=== PATIENT | male | born 1955 | race Hispanic/Latino ===

== ENCOUNTER 2018-07-07 19:50 | Observation (INO) | payer OTHER ==
[2018-07-07 19:54] VITALS: BMI 34.7
[2018-07-07] MEDS ORDERED: Sodium Chloride 0.9% 1,000 ML IV STA (20:43)
[2018-07-07] MEDS ORDERED: ceFAZolin 1 GM in Sodium Chloride 0.9% 100 ML IVPB STA (20:43)
[2018-07-07] MEDS ORDERED: Morphine 4 MG/ML VIAL ONE ×2 (21:11→22:28)
--- NOTE | 2018-07-07 21:57 | ED PDOC ---
ED Additional Note - Date & Time of Evaluation Date of Evaluation: 07/07/18 Time of Evaluation: 20:50 - Physician Additional Note Physician Additional Note: Patient assessed and evaluated alongside NASRIN Villeda. Patient tripped over a wire on stage and fell on right elbow, sustaining a laceration which is likely an open fracture. Plan includes pain meds, tetanus booster, antibiotics, and ortho consult. Scribe Attestation: Documented by Erica Turcios, acting as a scribe for Maury Reyes MD. Provider Scribe Attestation: All medical record entries made by the Scribe were at my direction and personally dictated by me. I have reviewed the chart and agree that the record accurately reflects my personal performance of the history, physical exam, me dical decision making, and the department course for this patient. I have also personally directed, reviewed, and agree with the discharge instructions and disposition.
--- NOTE | 2018-07-07 21:59 | ED PDOC ---
HPI: General Adult Time Seen by Provider: 07/07/18 20:32 Chief Complaint (Nursing): Upper Extremity Problem/Injury History Per: Patient Additional Complaint(s): Pt. states earlier today at he was performing on a level ground stage then tripped over a monitor and fell off the stage landing directly on his R elbow. Pt. states he sustained a wound to the R elbow. Denies numbness, tingling, other injury, head injury, LOC. Past Medical History Reviewed: Historical Data, Nursing Documentation, Vital Signs Vital Signs: Last Vital Signs Temp 97.9 F 07/07/18 19:54 Pulse 78 07/07/18 19:54 Resp 18 07/07/18 19:54 BP 132/92 H 07/07/18 19:54 Pulse Ox 99 07/07/18 19:54 Primary Care Provider: Procedure,Nonphys - Medical History PMH: Hyperthyroidism - Surgical History Surgical History: No Surg Hx - Family History Family History: States: No Known Family Hx - Home Medications Home Medications: Ambulatory Orders Medication Instructions Recorded Esomeprazole Magnesium [Nexium] 40 mg PO DAILY 07/08/18 Levothyroxine [Synthroid] 0.05 mcg PO DAILY 07/08/18 - Allergies Allergies/Adverse Reactions: Allergies Allergy/AdvReac Type Severity Reaction Status Date / Time No Known Allergies Allergy Verified 07/07/18 19:54 Review of Systems ROS Statement: Except As Marked, All Systems Reviewed And Found Negative Physical Exam - Physical Exam Appears: Positive for: Well, Non-toxic, No Acute Distress Head Exam: Positive for: ATRAUMATIC, NORMAL INSPECTION, NORMOCEPHALIC Skin: Positive for: Normal Color, Warm. Negative for: Rash Eye Exam: Positive for: Normal appearance Neck: Positive for: Normal, Painless ROM, Supple Cardiovascular/Chest: Positive for: Regular Rate, Rhythm, Chest Non Tender Respiratory: Positive for: Normal Breath Sounds. Negative for: Respiratory Distress Pulses-Radial (L): 2+ Pulses-Radial (R): 2+ Gastrointestinal/Abdominal: Positive for: Soft. Negative for: Tenderness Back: Positive for: Normal Inspection. Negative for: L CVA Tenderness, R CVA Tenderness, Vertebral Tenderness Extremity: Positive for: Other (R elbow with moderate swelling superficial puncture wound on proximal posterior forearm; LROM of R elbow secondary to pain; no R wrist, R shoulder, R hand tenderness; able to actively move all fingers of R hand) Neurological/Psych: Positive for: Awake, Alert, Oriented (x3) - Laboratory Results Result Diagrams: 07/07/18 22:22 07/07/18 22:22 - ECG ECG: Positive for: Interpreted By Me ECG Rhythm: Positive for: Sinus Rhythm. Negative for: ST/T Changes Rate: 83 O2 Sat by Pulse Oximetry: 99 - Progress ED Course And Treament: Labs, R elbow x-ray, morphine 4mg IV, zofran 4mg IV, ancef 1gm IV, IV NS hydration ordered. Pt. kept NPO. Pt. evaluated by Dr. Reyes. [id number] Case d/w Dr. Josue who viewed x-rays and requests for pt. to get CT of R elbow and agrees with current care. As per Dr. Josue Pt. does not need to be NPO anymore. NPO order cancelled. CT R elbow: comminuted oblique intra-articular fracture of the olecranon process. Oblique intra-articular fracture of the dorsal radial head-neck. Dislocation of the radius relative to the distal humerus as described above. Case d/w Dr. Sy and arrangements made for admission. Procedures - Time-Out Type of Procedure: Splint placement Site of Procedure: R elbow Correct Patient (with visual ID + MR# on ID Band): Yes Correct Procedure: Yes Correct Site Marked: Yes X-Ray Marked: Yes - Splinting Location: R arm Hand-Made Type: orthoglass Splint: posterior elbow splint Pre-Proc Neuro Vasc Exam: normal Post-Proc Neuro Vasc Exam: normal Progress: Prior to placement of splint puncture wound was irrigated heavily with 1000 cc's of sterile water. DSD applied over wound. Shoulder sling applied. Disposition - Clinical Impression Clinical Impression: Open fracture of elbow - Patient ED Disposition Is Patient to be Admitted: Yes - Disposition Disposition Time: 21:30 Condition: FAIR
[2018-07-07 22:26] LABS: BASO # 0.1 K/uL (0.0-0.2); BASO % 0.5 % (0.0-2.0); EOS # 0.1 K/uL (0.0-0.7); EOS % 0.5 % (0.0-4.0); HEMOGLOBIN 14.9 g/dL (12.0-18.0); LYMPH % 13.7 % (20.0-40.0); MEAN CELL VOLUME 89.8 fl (80.0-94.0); MEAN CORPUSCULAR HEMOGLOBIN 31.4 pg (27.0-31.0); MEAN PLATELET VOLUME 7.8 fl (7.2-11.7); MONO % 6.7 % (0.0-10.0); NEUT # 11.3 K/uL (1.8-7.0); NEUT % 78.6 % (50.0-75.0); NRBC % 0.1 % (0.0-0.0); RBC 4.76 Mil/uL (4.40-5.90); RED CELL DISTRIBUTION WIDTH 13.8 % (11.5-14.5); WHITE BLOOD COUNT 14.4 K/uL (4.8-10.8)
[2018-07-07 22:29] LABS: INR 1.1; PROTHROMBIN TIME 12.5 Seconds (9.8-13.1)
[2018-07-07 22:31] LABS: PARTIAL THROMBOPLASTIN TIME 31.3 Seconds (25.6-37.1)
[2018-07-07 22:33] LABS: ALB/GLOB RATIO 1.4 (1.0-2.1); ALBUMIN 4.9 g/dL (3.5-5.0); BLOOD UREA NITROGEN 18 mg/dl (9-20); CALCIUM 9.4 mg/dL (8.4-10.2); GFR NON-AFRICAN AMERICAN > 60
[2018-07-07 22:40] LABS: ALT/SGPT 53 U/L (21-72); AST/SGOT 41 U/L (17-59)
--- NOTE | 2018-07-07 23:50 | CP.PCM.HP ---
<Letha Baltazar - Last Filed: 07/08/18 00:55> History of Present Illness - History of Present Illness History of Present Illness: CC: fracture HPI: 62 YO Male with PMHx of hiatal hernia, Hep c, hypothyroidism presents to the ED after tripping and falling on stage. Patient was on stage when he tripped on while falling, he tried to protect his head by sticking our his R hand and fell on the R hand instead. He heard crunching and pain after the impact. There was no head trauma, or LOC. Patient was able to get up with help after the fall, his partner called EMS and they presented to the ER. PMHx: hiatal hernia, hypothyroidism, Hep C SurGHx: denies FHx: hx of DM and CAD in mother and brother SHx: hx of smoking quit 10 yrs ago (25 pack years), social ETOH and denies illicit drug use NKDA Present on Admission - Present on Admission Any Indicators Present on Admission: No Review of Systems - Constitutional Constitutional: absent: Fever - Cardiovascular Cardiovascular: absent: Chest Pain, Dyspnea - Respiratory Respiratory: absent: Dyspnea - Gastrointestinal Gastrointestinal: absent: Abdominal Pain, Nausea, Vomiting - Neurological Neurological: absent: Headaches, Syncope, Weakness Past Patient History - Past Social History Smoking Status: Former Smoker Alcohol: Social Drugs: Denies - ENDOCRINE/METABOLIC Hx Hyperthyroidism: Yes - PSYCHIATRIC Hx Substance Use: No Meds Allergies/Adverse Reactions: Allergies Allergy/AdvReac Type Severity Reaction Status Date / Time No Known Allergies Allergy Verified 07/07/18 19:54 Physical Exam - Constitutional Appears: No Acute Distress - Head Exam Head Exam: NORMAL INSPECTION - Eye Exam Eye Exam: EOMI, Normal appearance - ENT Exam ENT Exam: Mucous Membranes Moist - Respiratory Exam Respiratory Exam: Clear to Auscultation Bilateral, NORMAL BREATHING PATTERN. absent: Wheezes - Cardiovascular Exam Cardiovascular Exam: REGULAR RHYTHM, +S1, +S2 - GI/Abdominal Exam GI & Abdominal Exam: Normal Bowel Sounds, Soft. absent: Tenderness - Extremities Exam Extremities exam: Negative for: pedal edema Additional comments: RUE in sling, wrapped in kitty bandage Moving shoulder, NT moving all fingers, sensation intact Cap refill <2 sec - Back Exam Back exam: NORMAL INSPECTION - Neurological Exam Neurological exam: Alert, Oriented x3 - Skin Skin Exam: Normal Color, Warm Additional comments: no other injury to any other locations, skin intact-no abrasions or open wound noted in other areas of skin Results - Vital Signs Recent Vital Signs: Last Vital Signs Temp 97.9 F 07/07/18 19:54 Pulse 78 07/07/18 19:54 Resp 18 07/07/18 19:54 BP 132/92 H 07/07/18 19:54 Pulse Ox 99 07/07/18 22:09 - Labs Result Diagrams: 07/07/18 22:22 07/07/18 22:22 Labs: Laboratory Results - last 24 hr 07/07/18 07/07/18 07/07/18 22:15 22:22 22:22 WBC 14.4 H RBC 4.76 Hgb 14.9 Hct 42.7 MCV 89.8 MCH 31.4 H MCHC 35.0 RDW 13.8 Plt Count 284 MPV 7.8 Neut % (Auto) 78.6 H Lymph % (Auto) 13.7 L Tillman % (Auto) 6.7 Eos % (Auto) 0.5 Baso % (Auto) 0.5 Neut # (Auto) 11.3 H Lymph # (Auto) 2.0 Tillman # (Auto) 1.0 H Eos # (Auto) 0.1 Baso # (Auto) 0.1 PT INR APTT Sodium 137 Potassium 4.3 Chloride 100 Carbon Dioxide 20 L Anion Gap 21 H BUN 18 Creatinine 1.0 Est GFR ( Amer) > 60 Est GFR (Non-Af Amer) > 60 Random Glucose 130 H Calcium 9.4 Total Bilirubin 0.6 AST 41 ALT 53 Alkaline Phosphatase 48 Total Protein 8.6 H Albumin 4.9 Globulin 3.6 Albumin/Globulin Ratio 1.4 Blood Type O NEGATIVE Antibody Screen Negative BBK History Checked No verified bt 07/07/18 22:22 WBC RBC Hgb Hct MCV MCH MCHC RDW Plt Count MPV Neut % (Auto) Lymph % (Auto) Tillman % (Auto) Eos % (Auto) Baso % (Auto) Neut # (Auto) Lymph # (Auto) Tillman # (Auto) Eos # (Auto) Baso # (Auto) PT 12.5 INR 1.1 APTT 31.3 Sodium Potassium Chloride Carbon Dioxide Anion Gap BUN Creatinine Est GFR ( Amer) Est GFR (Non-Af Amer) Random Glucose Calcium Total Bilirubin AST ALT Alkaline Phosphatase Total Protein Albumin Globulin Albumin/Globulin Ratio Blood Type Antibody Screen BBK History Checked Assessment & Plan - Assessment and Plan (Free Text) Assessment: Assessment/Plan: 62 YO Male with PMHx of hiatal hernia, Hep c, hypothyroidism is admitted for R elbow fracture. R elbow fracture -XR and CT reviewed displaced fx of the radial and ulner neck -Ortho consulted; follow up recs, NPO in AM -Pain management -IV fluids Leukopcytosis -likely 2/2 to trauma -acute phase reactant -follow up AM labs Hypothyroidism -chronic -c/w home meds Hep C -chronic -controlled, s/p tx DVT prolx -SCDs for now -hold Lovenox for now, questionable OR in AM <Nathen Sy - Last Filed: 07/08/18 06:16> Results - Vital Signs Recent Vital Signs: Last Vital Signs Temp 99.0 F 07/08/18 02:29 Pulse 87 07/08/18 02:29 Resp 20 07/08/18 02:29 BP 147/81 07/08/18 02:29 Pulse Ox 95 07/08/18 02:29 - Labs Result Diagrams: 07/07/18 22:22 07/07/18 22:22 Labs: Laboratory Results - last 24 hr 07/07/18 07/07/18 07/07/18 22:15 22:22 22:22 WBC 14.4 H RBC 4.76 Hgb 14.9 Hct 42.7 MCV 89.8 MCH 31.4 H MCHC 35.0 RDW 13.8 Plt Count 284 MPV 7.8 Neut % (Auto) 78.6 H Lymph % (Auto) 13.7 L Tillman % (Auto) 6.7 Eos % (Auto) 0.5 Baso % (Auto) 0.5 Neut # (Auto) 11.3 H Lymph # (Auto) 2.0 Tillman # (Auto) 1.0 H Eos # (Auto) 0.1 Baso # (Auto) 0.1 PT INR APTT Sodium 137 Potassium 4.3 Chloride 100 Carbon Dioxide 20 L Anion Gap 21 H BUN 18 Creatinine 1.0 Est GFR ( Amer) > 60 Est GFR (Non-Af Amer) > 60 Random Glucose 130 H Calcium 9.4 Total Bilirubin 0.6 AST 41 ALT 53 Alkaline Phosphatase 48 Total Protein 8.6 H Albumin 4.9 Globulin 3.6 Albumin/Globulin Ratio 1.4 Blood Type O NEGATIVE Blood Type Confirm Antibody Screen Negative BBK History Checked No verified bt 07/07/18 07/07/18 22:22 23:32 WBC RBC Hgb Hct MCV MCH MCHC RDW Plt Count MPV Neut % (Auto) Lymph % (Auto) Tillman % (Auto) Eos % (Auto) Baso % (Auto) Neut # (Auto) Lymph # (Auto) Tillman # (Auto) Eos # (Auto) Baso # (Auto) PT 12.5 INR 1.1 APTT 31.3 Sodium Potassium Chloride Carbon Dioxide Anion Gap BUN Creatinine Est GFR ( Amer) Est GFR (Non-Af Amer) Random Glucose Calcium Total Bilirubin AST ALT Alkaline Phosphatase Total Protein Albumin Globulin Albumin/Globulin Ratio Blood Type Blood Type Confirm O NEGATIVE Antibody Screen BBK History Checked Attending/Attestation - Attestation I have personally seen and examined this patient.: Yes I have fully participated in the care of the patient.: Yes I have reviewed all pertinent clinical information: Yes Notes (Text): 07/08/18 06:08 I saw, examined and discussed this patient with Dr Baltazar. I agree with the assessment and plan outlined above. This is a 62 years old male with hx of treated Hepatitis C, hypothyroidism who fell while singing receiving trauma to the right elbow with open fracture and dislocation of the Radius and Ulna. Consult Orthopedic Dr Josue and treat with pain management , Tetanus Toxoid in ED, Empirical Antibiotic Cefazolin and pain management . Treat Hypothyroidism and follow TSH Nathen Sy MD
[2018-07-08] MEDS ORDERED: Potassium Ch 20mEq in D5-1/2NS 1,000 ML IV SCH (06:00)
[2018-07-08] MEDS: Pantoprazole 40 mg EC Tab PO SCH (06:04)
[2018-07-08] MEDS: Levothyroxine 50 MCG TAB PO SCH (06:04)
[2018-07-08] MEDS ORDERED: Levothyroxine 50 MCG TAB PO SCH (06:30)
[2018-07-08 06:54] LABS: BASO # 0.1 K/uL (0.0-0.2); BASO % 0.5 % (0.0-2.0); EOS % 0.2 % (0.0-4.0); HEMOGLOBIN 14.3 g/dL (12.0-18.0); LYMPH % 18.6 % (20.0-40.0); MEAN CELL VOLUME 88.3 fl (80.0-94.0); MEAN CORPUSCULAR HEMOGLOBIN 31.2 pg (27.0-31.0); MEAN CORPUSCULAR HGB CONC 35.4 g/dL (33.0-37.0); MEAN PLATELET VOLUME 7.8 fl (7.2-11.7); MONO % 9.5 % (0.0-10.0); NEUT # 7.5 K/uL (1.8-7.0); NEUT % 71.2 % (50.0-75.0); NRBC % 0.1 % (0.0-0.0); RBC 4.57 Mil/uL (4.40-5.90); RED CELL DISTRIBUTION WIDTH 13.7 % (11.5-14.5); WHITE BLOOD COUNT 10.5 K/uL (4.8-10.8)
[2018-07-08 07:00] LABS: BLOOD UREA NITROGEN 17 mg/dl (9-20); CALCIUM 8.9 mg/dL (8.4-10.2); GFR NON-AFRICAN AMERICAN > 60
[2018-07-08] MEDS: ceFAZolin 1 GM in Sodium Chloride 0.9% 100 ML IVPB SCH ×2 (08:24→16:43)
--- NOTE | 2018-07-08 09:06 | CT ---
Date of service: 07/07/2018 PROCEDURE: CT right elbow HISTORY: trauma; attention R elbow COMPARISON: Not available TECHNIQUE: 2.5 mm contiguous axial sections were acquired through the right elbow. Sagittal and coronal images were reformatted from the axial images. Contrast administered: None Total exam DLP: 171.22 mGy-cm. This CT exam was performed using 1 or more of the following dose reduction techniques: Automated exposure control, adjustment of the mA and/or kV according to patient size, and/or use of iterative reconstruction technique. FINDINGS: There is dislocation of the radial head at the elbow. There is no evidence of radial head fracture on this examination. There is severely comminuted and displaced fracture of the proximal ulna. The ulna does not articulate normally with the trochlea. It is displaced without being frankly dislocated. There is no humeral fracture identified. There is no significant hemarthrosis appreciated. There is no lytic or blastic osseous lesion. IMPRESSION: Severely comminuted intra-articular proximal ulnar fracture with displacement/subluxation without evidence of gaby dislocation at the trochlea. There is gaby dislocation of the radial head without evidence of fracture. There is no humeral fracture appreciated. The preliminary findings for this examination were reported by [facility] at 11:27 p.m. on 07/07/2018. There is concurrence of this report with the preliminary findings.
[2018-07-08] MEDS ORDERED: Oxycodone/Acetaminophen 5/325 mg Tab PO PRN (09:27)
--- NOTE | 2018-07-08 09:32 | CP.PCM.CON ---
History of Present Illness - History of Present Illness History of Present Illness: Orthopedic consultation Dr. 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 Denies head injury, denies pain in other extremities, denies numbness/tingling. Denies CP/SOB/dizziness PMH: former smoker, Hep C, hyperthyroid, Review of Systems - Review of Systems All systems: reviewed and no additional remarkable complaints except - Constitutional Additional comments: no fever/chills - Cardiovascular Cardiovascular: As Per HPI - Respiratory Respiratory: As Per HPI - Integumentary Additional comments: wound to elbow - Neurological Neurological: As Per HPI - Hematologic/Lymphatic Hematologic: absent: As Per HPI, Easy Bleeding, Easy Bruising, Lymphadenopathy, Other Past Patient History - Past Medical History & Family History Past Medical History?: Yes Past Family History: Reviewed and not pertinent - Past Social History Smoking Status: Former Smoker - CARDIAC Hx Cardiac Disorders: No Hx Hypercholesterolemia: No (denies hx) Hx Hypertension: No (denies hx) - PULMONARY Hx Respiratory Disorders: No - NEUROLOGICAL Hx Neurological Disorder: No - HEENT Hx HEENT Problems: Yes Other/Comment: wears eyeglasses, hx of tinnitis to both ears - RENAL Hx Chronic Kidney Disease: No - ENDOCRINE/METABOLIC Hx Endocrine Disorders: Yes Hx Hyperthyroidism: Yes - HEMATOLOGICAL/ONCOLOGICAL Hx Blood Disorders: Yes Hx AIDS: No Hx Hepatitis C: Yes Hx Human Immunodeficiency Virus (HIV): No - INTEGUMENTARY Hx Dermatological Problems: No - MUSCULOSKELETAL/RHEUMATOLOGICAL Hx Falls: No - GASTROINTESTINAL Hx Gastrointestinal Disorders: Yes Other/Comment: hiatal hernia - GENITOURINARY/GYNECOLOGICAL Hx Genitourinary Disorders: No Hx Prostate Problems: No - PSYCHIATRIC Hx Substance Use: No - SURGICAL HISTORY Hx Surgeries: No Other/Comment: hx of endoscopy and colonoscopy. denies any surgical hx - ANESTHESIA Hx Anesthesia: Yes Hx Anesthesia Reactions: No Meds Allergies/Adverse Reactions: Allergies Allergy/AdvReac Type Severity Reaction Status Date / Time No Known Allergies Allergy Verified 07/07/18 19:54 - Medications Medications: Current Medications Acetaminophen (Tylenol 325mg Tab) 650 mg PO Q6 PRN PRN Reason: Pain, Mild (1-3) Potassium Chloride/Dextrose/Sod Cl (Potassium Chl 20 Meq In D5-1/2ns) 1,000 mls @ 150 mls/hr IV .Q6H40M [facility] Stop: 07/08/18 12:39 Last Admin: 07/08/18 06:04 Dose: 150 mls/hr Cefazolin Sodium 1 gm/ Sodium (Chloride) 100 mls @ 100 mls/hr IVPB Q8 GRACE; Protocol Last Admin: 07/08/18 08:24 Dose: 100 mls/hr Levothyroxine Sodium (Synthroid) 50 mcg PO DAILY@0630 [facility] Last Admin: 07/08/18 06:04 Dose: 50 mcg Morphine Sulfate (Morphine) 6 mg IVP Q6 PRN PRN Reason: Pain, severe (8-10) Morphine Sulfate (Morphine) 2 mg IVP Q4 PRN PRN Reason: Pain, moderate (4-7) Last Admin: 07/08/18 06:20 Dose: 2 mg Oxycodone/Acetaminophen (Percocet 5/325 Mg Tab) 1 tab PO Q4 PRN PRN Reason: Pain, Mild (1-3) Stop: 07/11/18 09:28 Pantoprazole Sodium (Protonix Ec Tab) 40 mg PO DAILY [facility] Last Admin: 07/08/18 06:04 Dose: 40 mg Physical Exam - Constitutional Appears: Well, No Acute Distress - Head Exam Head Exam: ATRAUMATIC - Neck Exam Neck exam: Positive for: Full Rom, Normal Inspection - Respiratory Exam Respiratory Exam: NORMAL BREATHING PATTERN - Cardiovascular Exam Additional comments: +radial pulse - Expanded Upper Extremities Exam Right General: laceration Neurosensory exam: median nerve intact, radial nerve intact, ulnar nerve intact Vascular exam: radial pulse (long arm splint intact) - Neurological Exam Neurological exam: Alert, Oriented x3 - Psychiatric Exam Psychiatric exam: Normal Affect, Normal Mood - Skin Skin Exam: Dry, Normal Color, Warm Additional comments: small puncture to posterior forearm Results - Vital Signs Recent Vital Signs: Last Vital Signs Temp 98.0 F 07/08/18 07:50 Pulse 71 07/08/18 07:50 Resp 19 07/08/18 07:50 BP 145/80 07/08/18 07:50 Pulse Ox 96 07/08/18 07:50 - Labs Result Diagrams: 07/08/18 05:35 07/08/18 05:35 Labs: Laboratory Results - last 24 hr 07/07/18 07/07/18 07/07/18 22:15 22:22 22:22 WBC 14.4 H RBC 4.76 Hgb 14.9 Hct 42.7 MCV 89.8 MCH 31.4 H MCHC 35.0 RDW 13.8 Plt Count 284 MPV 7.8 Neut % (Auto) 78.6 H Lymph % (Auto) 13.7 L Edmunds % (Auto) 6.7 Eos % (Auto) 0.5 Baso % (Auto) 0.5 Neut # (Auto) 11.3 H Lymph # (Auto) 2.0 Edmunds # (Auto) 1.0 H Eos # (Auto) 0.1 Baso # (Auto) 0.1 PT INR APTT Sodium 137 Potassium 4.3 Chloride 100 Carbon Dioxide 20 L Anion Gap 21 H BUN 18 Creatinine 1.0 Est GFR ( Amer) > 60 Est GFR (Non-Af Amer) > 60 Random Glucose 130 H Calcium 9.4 Total Bilirubin 0.6 AST 41 ALT 53 Alkaline Phosphatase 48 Total Protein 8.6 H Albumin 4.9 Globulin 3.6 Albumin/Globulin Ratio 1.4 TSH 3rd Generation Blood Type O NEGATIVE Blood Type Confirm Antibody Screen Negative BBK History Checked No verified bt 07/07/18 07/07/18 07/08/18 22:22 23:32 05:35 WBC 10.5 RBC 4.57 Hgb 14.3 Hct 40.4 MCV 88.3 MCH 31.2 H MCHC 35.4 RDW 13.7 Plt Count 268 MPV 7.8 Neut % (Auto) 71.2 Lymph % (Auto) 18.6 L Edmunds % (Auto) 9.5 Eos % (Auto) 0.2 Baso % (Auto) 0.5 Neut # (Auto) 7.5 H Lymph # (Auto) 2.0 Edmunds # (Auto) 1.0 H Eos # (Auto) 0.0 Baso # (Auto) 0.1 PT 12.5 INR 1.1 APTT 31.3 Sodium Potassium Chloride Carbon Dioxide Anion Gap BUN Creatinine Est GFR ( Amer) Est GFR (Non-Af Amer) Random Glucose Calcium Total Bilirubin AST ALT Alkaline Phosphatase Total Protein Albumin Globulin Albumin/Globulin Ratio TSH 3rd Generation Blood Type Blood Type Confirm O NEGATIVE Antibody Screen BBK History Checked 07/08/18 05:35 WBC RBC Hgb Hct MCV MCH MCHC RDW Plt Count MPV Neut % (Auto) Lymph % (Auto) Edmunds % (Auto) Eos % (Auto) Baso % (Auto) Neut # (Auto) Lymph # (Auto) Edmunds # (Auto) Eos # (Auto) Baso # (Auto) PT INR APTT Sodium 135 Potassium 4.6 Chloride 103 Carbon Dioxide 19 L Anion Gap 18 BUN 17 Creatinine 1.0 Est GFR ( Amer) > 60 Est GFR (Non-Af Amer) > 60 Random Glucose 129 H Calcium 8.9 Total Bilirubin AST ALT Alkaline Phosphatase Total Protein Albumin Globulin Albumin/Globulin Ratio TSH 3rd Generation 4.01 Blood Type Blood Type Confirm Antibody Screen BBK History Checked - Impressions Impression: atient Name / ID : BRIAN HSU / [id number] Exam Date : 07/07/2018 22:34:51 ( Approved ) Study Comment : Sex / Age : M / 62Y Creator : Jack Cordova MD Dictator : Jack Cordova MD Telephone Order Dispatcher : Sharples Machine Operator : Jack Cordova MD Approver2 : Report Date : 07/08/2018 09:03:08 My Comment : Date of service: 07/07/2018 PROCEDURE: CT right elbow HISTORY: trauma; attention R elbow COMPARISON: Not available TECHNIQUE: 2.5 mm contiguous axial sections were acquired through the right elbow. Sagittal and coronal images were reformatted from the axial images. Contrast administered: None Total exam DLP: 171.22 mGy-cm. This CT exam was performed using 1 or more of the following dose reduction techniques: Automated exposure control, adjustment of the mA and/or kV according to patient size, and/or use of iterative reconstruction technique. FINDINGS: There is dislocation of the radial head at the elbow. There is no evidence of radial head fracture on this examination. There is severely comminuted and displaced fracture of the proximal ulna. The ulna does not articulate normally with the trochlea. It is displaced without being frankly dislocated. There is no humeral fracture identified. There is no significant hemarthrosis appreciated. There is no lytic or blastic osseous lesion. IMPRESSION: Severely comminuted intra-articular proximal ulnar fracture with di splacement/subluxation without evidence of gaby dislocation at the trochlea. There is gaby dislocation of the radial head without evidence of fracture. There is no humeral fracture appreciated. The preliminary findings for this examination were reported by [facility] at 11:27 p.m. on 07/07/2018. There is concurrence of this report with the preliminary findings. Assessment & Plan (1) Fracture, Monteggia's, right arm, open Assessment and Plan: copiously irrigated in ER cont splint will need ORIF, possible radial head replacement 07/09 pending medical optimization pain medication NPO p MN check vit D for OR Status: Acute
--- NOTE | 2018-07-08 10:56 | RAD ---
Date of service: 07/07/2018 HISTORY: Trauma/fall COMPARISON: In her old of there is no mammogram correct FINDINGS: LUNGS: No active pulmonary disease. PLEURA: No significant pleural effusion identified, no pneumothorax apparent. CARDIOVASCULAR: No atherosclerotic calcification present Normal. OSSEOUS STRUCTURES: No significant abnormalities. VISUALIZED UPPER ABDOMEN: Normal. OTHER FINDINGS: None. IMPRESSION: No active disease.
--- NOTE | 2018-07-08 11:53 | CARD ---
APPROVED REPORT Date of service: 07/08/2018 EKG Measurement Heart [id number] <Conclusion> Normal sinus rhythm Normal Electrocardiogram
--- NOTE | 2018-07-08 13:07 | CP.PCM.PN ---
<Malissa Pierre - Last Filed: 07/08/18 13:09> Subjective - Date & Time of Evaluation Date of Evaluation: 07/08/18 Time of Evaluation: 11:30 - Subjective Subjective: Patient seen and examined at bedside. Reports moderate pain from area of broken bone. Denies angina, dypsnea, abdominal pain, nausea, vomiting, and urinary sym ptoms. Objective - Vital Signs/Intake and Output Vital Signs (last 24 hours): Temp Pulse Resp BP Pulse Ox 98.0 F 71 19 145/80 96 07/08/18 07:50 07/08/18 07:50 07/08/18 07:50 07/08/18 07:50 07/08/18 07:50 - Medications Medications: Current Medications Acetaminophen (Tylenol 325mg Tab) 650 mg PO Q6 PRN PRN Reason: Pain, Mild (1-3) Cefazolin Sodium 1 gm/ Sodium (Chloride) 100 mls @ 100 mls/hr IVPB Q8 [facility]; Protocol Last Admin: 07/08/18 08:24 Dose: 100 mls/hr Levothyroxine Sodium (Synthroid) 50 mcg PO DAILY@0630 [facility] Last Admin: 07/08/18 06:04 Dose: 50 mcg Morphine Sulfate (Morphine) 6 mg IVP Q6 PRN PRN Reason: Pain, severe (8-10) Last Admin: 07/08/18 10:59 Dose: 6 mg Morphine Sulfate (Morphine) 2 mg IVP Q4 PRN PRN Reason: Pain, moderate (4-7) Last Admin: 07/08/18 06:20 Dose: 2 mg Oxycodone/Acetaminophen (Percocet 5/325 Mg Tab) 1 tab PO Q4 PRN PRN Reason: Pain, Mild (1-3) Stop: 07/11/18 09:28 Pantoprazole Sodium (Protonix Ec Tab) 40 mg PO DAILY [facility] Last Admin: 07/08/18 06:04 Dose: 40 mg - Labs Labs: 07/08/18 05:35 07/08/18 05:35 PT 12.5 Seconds (9.8-13.1) 07/07/18 22:22 INR 1.1 07/07/18 22:22 APTT 31.3 Seconds (25.6-37.1) 07/07/18 22:22 - Constitutional Appears: Non-toxic, No Acute Distress - Eye Exam Eye Exam: Normal appearance - ENT Exam ENT Exam: Mucous Membranes Moist - Respiratory Exam Respiratory Exam: Clear to Ausculation Bilateral, NORMAL BREATHING PATTERN. absent: Accessory Muscle Use, Chest Wall Tenderness, Decreased Breath Sounds, Prolonged Expiratory Phase, Rales, Rhonchi, Wheezes, Respiratory Distress, Stridor - Cardiovascular Exam Cardiovascular Exam: REGULAR RHYTHM, +S1, +S2 - GI/Abdominal Exam GI & Abdominal Exam: Soft, Normal Bowel Sounds. absent: Distended, Firm, Guarding, Rigid, Tenderness, Rebound - Extremities Exam Extremities Exam: Normal Capillary Refill. absent: Calf Tenderness, Pedal Edema, Tenderness Additional comments: Soft cast placed on right arm. Able to move fingers and good, equal sensation bilaterally. - Neurological Exam Neurological Exam: Alert, Awake, Oriented x3 - Psychiatric Exam Psychiatric exam: Normal Affect, Normal Mood - Skin Skin Exam: Dry, Intact, Normal Color, Warm Assessment and Plan - Assessment and Plan (Free Text) Assessment: 62 YO Male with PMHx of hiatal hernia, Hep c, hypothyroidism is admitted for R elbow fracture. For OR tomorrow morning. Plan: R elbow fracture -XR and CT reviewed displaced fx of the radial and ulner neck -Ortho consulted- OR tomorrow morning. - NPO at Midnight -Pain management -IV fluids Leukocytosis -likely 2/2 to trauma -acute phase reactant -trending down from 14.4 to 10.5 Hypothyroidism -chronic -c/w home meds Hep C -chronic -controlled, s/p tx DVT prolx -SCDs for now -hold Lovenox for now, OR in AM <Jose Kim D - Last Filed: 07/08/18 13:53> Objective - Vital Signs/Intake and Output Vital Signs (last 24 hours): Temp Pulse Resp BP Pulse Ox 98.0 F 71 19 145/80 96 07/08/18 07:50 07/08/18 07:50 07/08/18 07:50 07/08/18 07:50 07/08/18 07:50 - Medications Medications: Current Medications Acetaminophen (Tylenol 325mg Tab) 650 mg PO Q6 PRN PRN Reason: Pain, Mild (1-3) Cefazolin Sodium 1 gm/ Sodium (Chloride) 100 mls @ 100 mls/hr IVPB Q8 [facility]; Protocol Last Admin: 07/08/18 08:24 Dose: 100 mls/hr Levothyroxine Sodium (Synthroid) 50 mcg PO DAILY@0630 [facility] Last Admin: 07/08/18 06:04 Dose: 50 mcg Morphine Sulfate (Morphine) 6 mg IVP Q6 PRN PRN Reason: Pain, severe (8-10) Last Admin: 07/08/18 10:59 Dose: 6 mg Morphine Sulfate (Morphine) 2 mg IVP Q4 PRN PRN Reason: Pain, moderate (4-7) Last Admin: 07/08/18 06:20 Dose: 2 mg Oxycodone/Acetaminophen (Percocet 5/325 Mg Tab) 1 tab PO Q4 PRN PRN Reason: Pain, Mild (1-3) Stop: 07/11/18 09:28 Pantoprazole Sodium (Protonix Ec Tab) 40 mg PO DAILY [facility] Last Admin: 07/08/18 06:04 Dose: 40 mg - Labs Labs: 07/08/18 05:35 07/08/18 05:35 PT 12.5 Seconds (9.8-13.1) 07/07/18 22:22 INR 1.1 07/07/18 22:22 APTT 31.3 Seconds (25.6-37.1) 07/07/18 22:22 Attending/Attestation - Attestation I have personally seen and examined this patient.: Yes I have fully participated in the care of the patient.: Yes I have reviewed all pertinent clinical information, including history, physical exam and plan: Yes Notes (Text): 07/08/18 13:52 Patient seen and examined with resident. Case discussed and agreed with assessment and plan.
[2018-07-09] MEDS: ceFAZolin 1 GM in Sodium Chloride 0.9% 100 ML IVPB SCH ×2 (00:08→09:19)
[2018-07-09] MEDS: Dextrose 5%/0.45% NS 1,000 ML IV SCH ×2 (00:08→09:32)
[2018-07-09] MEDS: Levothyroxine 50 MCG TAB PO SCH (06:21)
[2018-07-09] MEDS: Pantoprazole 40 mg EC Tab PO SCH (09:30)
--- NOTE | 2018-07-09 10:35 | CP.PCM.PN ---
<Malissa Pierre - Last Filed: 07/09/18 10:32> Subjective - Date & Time of Evaluation Date of Evaluation: 07/09/18 Time of Evaluation: 09:15 - Subjective Subjective: Patient seen and examined at bedside. Reports moderate amount of pain from right elbow. Denies chest pain, dypsnea, nausea, vomiting, abdominal pain or lower e xtremity pain. NPO, OR today at 4:[address] Josue. Objective - Vital Signs/Intake and Output Vital Signs (last 24 hours): Temp Pulse Resp BP Pulse Ox 98.3 F 84 20 134/84 95 07/09/18 08:05 07/09/18 08:05 07/09/18 08:05 07/09/18 08:05 07/09/18 08:05 - Medications Medications: Current Medications Acetaminophen (Tylenol 325mg Tab) 650 mg PO Q6 PRN PRN Reason: Pain, Mild (1-3) Hydromorphone HCl (Dilaudid) 1 mg IVP Q4 PRN PRN Reason: Pain, severe (8-10) Cefazolin Sodium 1 gm/ Sodium (Chloride) 100 mls @ 100 mls/hr IVPB Q8 [facility]; Protocol Last Admin: 07/09/18 09:19 Dose: 100 mls/hr Dextrose/Sodium Chloride (Dextrose 5%/0.45% Ns 1000 Ml) 1,000 mls @ 120 mls/hr IV .Q8H20M [facility] Stop: 07/09/18 16:03 Last Admin: 07/09/18 09:32 Dose: 120 mls/hr Levothyroxine Sodium (Synthroid) 50 mcg PO DAILY@0630 [facility] Last Admin: 07/09/18 06:21 Dose: Not Given Morphine Sulfate (Morphine) 2 mg IVP Q4 PRN PRN Reason: Pain, moderate (4-7) Last Admin: 07/09/18 09:29 Dose: 2 mg Oxycodone/Acetaminophen (Percocet 5/325 Mg Tab) 1 tab PO Q4 PRN PRN Reason: Pain, Mild (1-3) Stop: 07/11/18 09:28 Last Admin: 07/08/18 17:36 Dose: 1 tab Pantoprazole Sodium (Protonix Ec Tab) 40 mg PO DAILY [facility] Last Admin: 07/09/18 09:30 Dose: Not Given - Labs Labs: 07/08/18 05:35 07/08/18 05:35 PT 12.5 Seconds (9.8-13.1) 07/07/18 22:22 INR 1.1 07/07/18 22:22 APTT 31.3 Seconds (25.6-37.1) 07/07/18 22:22 - Constitutional Appears: Non-toxic, No Acute Distress - Eye Exam Eye Exam: Normal appearance - ENT Exam ENT Exam: Mucous Membranes Moist - Respiratory Exam Respiratory Exam: Clear to Ausculation Bilateral, NORMAL BREATHING PATTERN. absent: Accessory Muscle Use, Chest Wall Tenderness, Decreased Breath Sounds, Prolonged Expiratory Phase, Rales, Rhonchi, Wheezes, Respiratory Distress, Stridor - Cardiovascular Exam Cardiovascular Exam: REGULAR RHYTHM, +S1, +S2 - GI/Abdominal Exam GI & Abdominal Exam: Soft, Normal Bowel Sounds. absent: Distended, Firm, Guarding, Rigid, Tenderness, Mass, Rebound - Extremities Exam Extremities Exam: Full ROM, Normal Capillary Refill. absent: Calf Tenderness, Pedal Edema, Tenderness Additional comments: Soft cast in place on right elbow down to the right hand. Able to move fingers and has good sensation. - Neurological Exam Neurological Exam: Alert, Awake, Oriented x3 - Psychiatric Exam Psychiatric exam: Normal Affect, Normal Mood - Skin Skin Exam: Dry, Intact, Normal Color, Warm Assessment and Plan - Assessment and Plan (Free Text) Assessment: 62 yo Male with PMHx of hiatal hernia, Hep c, hypothyroidism is admitted for R elbow fracture. For OR today at 4:30 pm. Plan: R elbow fracture -XR and CT reviewed displaced fx of the radial and ulnar neck -Ortho consulted- OR today @ 4:30pm. - NPO -Pain management - added dilaudid at this time given severe pain. -IV fluids Leukocytosis -likely 2/2 to trauma -acute phase reactant -trending down from 14.4 to 10.5 Hypothyroidism -chronic -c/w home meds Hep C -chronic -controlled, s/p tx DVT prolx -SCDs for now -hold Lovenox for now, OR today, restart tomorrow. <Mariah Hudson - Last Filed: 07/09/18 19:29> Objective - Vital Signs/Intake and Output Vital Signs (last 24 hours): Temp Pulse Resp BP Pulse Ox 97.5 F L 95 H 17 154/97 H 95 07/09/18 18:25 07/09/18 18:25 07/09/18 18:25 07/09/18 18:25 07/09/18 18:25 Intake and Output: 07/09/18 07/10/18 18:59 06:59 Intake Total 2250 Balance 2250 - Medications Medications: Current Medications Acetaminophen (Tylenol 325mg Tab) 650 mg PO Q6 PRN PRN Reason: Pain, Mild (1-3) Docusate Sodium (Colace) 100 mg PO BID [facility] Hydromorphone HCl (Dilaudid) 1 mg IVP Q4 PRN PRN Reason: Pain, severe (8-10) Last Admin: 07/09/18 11:01 Dose: 1 mg Hydromorphone HCl (Dilaudid) 0.5 mg IVP Q10M PRN PRN Reason: Pain, moderate (4-7) Stop: 07/09/18 20:06 Last Admin: 07/09/18 18:34 Dose: 0.5 mg Cefazolin Sodium 2 gm/ Sodium (Chloride) 100 mls @ 100 mls/hr IVPB Q8 [facility]; Protocol Stop: 07/10/18 09:59 Lactated Ringer's (Lactated Ringer's) 1,000 mls @ 100 mls/hr IV .Q10H [facility] Levothyroxine Sodium (Synthroid) 50 mcg PO DAILY@0630 [facility] Last Admin: 07/09/18 06:21 Dose: Not Given Ondansetron HCl (Zofran Inj) 4 mg IVP ONCE PRN PRN Reason: Nausea/Vomiting Stop: 07/09/18 20:06 Oxycodone/Acetaminophen (Percocet 5/325 Mg Tab) 1 tab PO Q4 PRN PRN Reason: Pain, Mild (1-3) Stop: 07/11/18 09:28 Last Admin: 07/08/18 17:36 Dose: 1 tab Oxycodone/Acetaminophen (Percocet 5/325 Mg Tab) 2 tab PO Q4 PRN PRN Reason: Pain, moderate (4-7) Stop: 07/12/18 17:22 Pantoprazole Sodium (Protonix Ec Tab) 40 mg PO DAILY [facility] Last Admin: 07/09/18 09:30 Dose: Not Given - Labs Labs: 07/08/18 05:35 07/08/18 05:35 PT 12.5 Seconds (9.8-13.1) 07/07/18 22:22 INR 1.1 07/07/18 22:22 APTT 31.3 Seconds (25.6-37.1) 07/07/18 22:22 Attending/Attestation - Attestation I have personally seen and examined this patient.: Yes I have fully participated in the care of the patient.: Yes I have reviewed all pertinent clinical information, including history, physical exam and plan: Yes Notes (Text): Right Elbow Fracture Hypothyroidism - Plan for ORIF today by Dr Josue - NPO -IVF - Pain mgt - cont Levothyroxine - PT/OT consult
[2018-07-09] MEDS ORDERED: Propofol 10 mg/ml Inj (20 ML) ONE ×4 (12:27→18:11)
[2018-07-09] MEDS ORDERED: Succinylcholine 200 mg/10 ml Inj IV ONE (12:27)
[2018-07-09] MEDS ORDERED: Rocuronium 10 mg/ml (5 ml) ONE ×2 (12:27→14:23)
[2018-07-09] MEDS ORDERED: Neostigmine 1:1000 (1 mg/ml) Inj ONE ×2 (12:27→16:33)
[2018-07-09] MEDS ORDERED: Lidocaine 4% (Laryng-O-Jet) Kit MM ONE (12:27)
[2018-07-09] MEDS ORDERED: Midazolam 2 MG/2 ML VIAL ONE (12:27)
[2018-07-09] MEDS ORDERED: Lidocaine 1% 5ml Abboject ONE (12:33)
[2018-07-09] MEDS ORDERED: Bupivacaine 0.25%-Epinephrine 1:200,000 (30 ml) Inj ONE (12:34)
--- NOTE | 2018-07-09 12:40 | RAD ---
Date of service: 07/07/2018 PROCEDURE: Radiographs of the right elbow. HISTORY: trauma COMPARISON: July 07, 2018. CT upper extremity, right TECHNIQUE: 3 views obtained. FINDINGS: BONES: Comminuted proximal ulnar fracture. Dislocation without fracture of the radial head JOINTS: Displaced mint/subluxation better visualized on follow-up CT of the right upper extremity. SOFT TISSUES: Soft tissue swelling attests to the acuity of the fracture. JOINT EFFUSION: None. OTHER FINDINGS: None. IMPRESSION: Redemonstration of comminuted proximal ulnar fracture. Dislocation also identified. Dislocation of the right radius.
[2018-07-09] MEDS ORDERED: Lidocaine 1% Inj (20ml) ONE (12:44)
[2018-07-09] MEDS ORDERED: Bupivacaine 0.5% Inj(30mL) ONE (12:44)
[2018-07-09] MEDS ORDERED: Lactated Ringer's 1,000 ML IV ONE ×3 (13:00→18:45)
[2018-07-09] MEDS ORDERED: Sevoflurane - Inhalation Anesthetic Liq (250 ml) ONE (14:35)
[2018-07-09] MEDS ORDERED: Lactated Ringer's 1,000 ML IV SCH (18:15)
--- NOTE | 2018-07-09 18:15 | PCM.SURG1 ---
Surgeon's Initial Post Op Note - Surgeon's Notes Surgeon: tiffani Medical Leader: garry Type of Anesthesia: General Endo Pre-Operative Diagnosis: R elbow monteggia fx Operative Findings: see dictation Post-Operative Diagnosis: same Operation Performed: ORIF proximal ulna Specimen/Specimens Removed: none Estimated Blood Loss: EBL {In ML}: 50 Date of Surgery/Procedure: 07/09/18 Time of Surgery/Procedure: 13:00
[2018-07-09] MEDS: HYDROmorphone 0.5 mg/0.5 ml ISec IVP PRN ×2 (18:34→19:49)
--- NOTE | 2018-07-09 20:49 | CP.PCM.PCO ---
Assessment/Plan - Assessment and Plan (Free Text) Assessment: POST-OP NOTE 62 YO Male with PMHx of hiatal hernia, Hep c, hypothyroidism is admitted for R elbow fracture. S/p ORIF proximal ulna, POD 0 Patient is seen and examined by bedside now, eating dinner Endorsing pain in the elbow and mild tingling of the fingers Tolerating PO O: VS stable, afebrile. RUE in cast, moving shoulder and fingers Cap refill <2 Heart S1S2 no additional heart sounds R: clear breath sounds A: BS+ NT Neuro: AAO x 3 A/P: R elbow fracture, S/p ORIF proximal ulna, POD 0 -pain management -PT eval
[2018-07-09] MEDS: Oxycodone/Acetaminophen 5/325 mg Tab PO PRN (23:18)
[2018-07-10] MEDS: ceFAZolin 2 GM in Sodium Chloride 0.9% 100 ML IVPB SCH ×2 (00:37→08:37)
[2018-07-10 03:45] LABS: URINE BILIRUBIN NEGATIVE (NEGATIVE); URINE BLOOD MODERATE (NEGATIVE); URINE CLARITY CLEAR (Clear); URINE COLOR YELLOW (YELLOW); URINE GLUCOSE (UA) 150 mg/dL (NEGATIVE); URINE HYALINE CAST 0-2 /hpf (0-2); URINE LEUKOCYTE ESTERASE NEG Leu/uL (Negative); URINE PROTEIN 100 mg/dL (NEGATIVE); URINE UROBILINOGEN 0.2-1.0 mg/dL (0.2-1.0)
[2018-07-10] MEDS: Levothyroxine 50 MCG TAB PO SCH (05:41)
--- NOTE | 2018-07-10 06:03 | OP ---
PROCEDURE DATE: 07/09/2018 PREOPERATIVE DIAGNOSES: 1. Open grade 1 Monteggia fracture of the right elbow with radial head fracture and dislocation. 2. Ulnar nerve neuritis at the cubital tunnel. POSTOPERATIVE DIAGNOSES: 1. Open grade 1 Monteggia fracture of the right elbow with radial head fracture and dislocation. 2. Ulnar nerve neuritis at the cubital tunnel. PROCEDURES: 1. Open reduction and internal fixation of Monteggia fracture of proximal ulna with 90-90 plating, 15016. 2. Open treatment of radial head fracture and dislocation, 57618. 3. Ulnar nerve neuroplasty and cubital tunnel release, 82860. 4. Open debridement of open fracture of muscle bone of proximal ulna, 93179. SURGEON: Miguel Josue MD HEADWAITRESS: Giuliano Alvarado MD SECOND HEADWAITRESS: NASRIN Barbour IMPLANTS: 1. Synthes proximal ulnar olecranon plate. 2. [employer] recon plate. 3. Allograft bone chips. ESTIMATED BLOOD LOSS: 50 mL. ANESTHESIA: General and postoperative right upper extremity block. COMPLICATIONS: None. DISPOSITION: Stable to recovery room. SPECIMENS: None. INDICATIONS: This is a 62-year-old right-hand dominant jimenez who fell off a stage landing on his right elbow and the patient presented to [place] emergency room with severely displaced and comminuted proximal ulnar fracture with posterior fracture dislocation of the radial head. The patient was admitted to the hospital and indicated for the above procedure. There was also a puncture hole over the proximal ulna consistent with grade 1 open fracture. DESCRIPTION OF PROCEDURE: The patient was brought to the operating room and placed supine on the operating room table. After general anesthesia was given, a non-sterile tourniquet was placed on the patient's right upper extremity and the patient was turned into a prone position. The right upper extremity was then prepped and draped in a standard surgical fashion and time-out was proposed. A posterior elbow incision was outlined. The arm was elevated and exsanguinated. Tourniquet was inflated to 250 mmHg. Incision was made through the skin only. All superficial veins were cauterized. Dissection was then carried down to the ulnar side of the elbow to identify the ulnar nerve. The ulnar nerve was identified at the proximal aspect of the elbow. It was further decompressed in the cubital tunnel by releasing the Jenkins's ligament, cubital tunnel arcade of Karlos and splitting two heads of the flexor carpi ulnaris. The ulnar nerve was inspected. There was some bruising and hematoma around the nerve. Otherwise, the nerve was intact. Vessels were placed around the nerve for protection. Next, work was begun on identifying the proximal ulnar fracture. The fracture fragments were identified and periosteum was released until the fracture fragments were identified. Soft tissue was released over the edges of the fracture fragments. In total, there were five fracture fragments involving intra-articular fracture of the coronoid. The fracture site was inspected and irrigated, all early hematoma was removed. Viable tissue was removed with rongeur. The wound was then copiously irrigated and debrided. The bone was debrided to good healthy bleeding bone. Next, sigmoid notch was inspected and there was fracture fragment from the radial head, which was completely detached and floating in the sigmoid notch. The fracture fragment was removed. This fracture fragment was about 50% of the total radial head. The rest of the radial head looked intact. Work was then begun on assembling the proximal ulna. The two proximal fracture pieces were held initially together by K-wires followed by open reduction of the distal fracture fragment. Proximal ulnar olecranon Synthe[employer] plate was then placed over the posterior border of the ulna and the olecranon. It was temporarily transfixed with multiple K-wires. Next, the coronoid fracture piece was inspected. The flexor pronator mass was elevated subperiosteally over the coronoid careful to protect medial collateral ligament and the ulnar nerve. After the elevation, the coronoid was shown to be completely free floating and was a significant piece. This piece was then reduced to the proximal ulna and held provisionally with K-wires. Work was then begun on locking the plate proximally followed by locking it distally. The plate and the proximal ulna was completely out to full length and confirmed on fluoroscopic images. Next, a 3.5 mm screw was placed in a lag technique from the posterior border of the ulna through the plate and into the anterior border of the coronoid. This helped to capture the coronoid piece and held it provisionally reduced. Fluoroscopic images again confirmed the well-reduced elbow joint. Next, the rest of the screws were filled in combination of locking and non-locking techniques, capturing the coronoid piece. The fracture defect over the medial side of the ulna was then filled with allograft and packed tightly followed by placing another fracture piece and closing the window. Next, a recon plate was placed on the proximal medial side of the ulna to help additional overall stability and rotational control of the coronoid. The plate was initially held by K-wires followed by placement of cortical screws in proximal and distal holes. All screws were of appropriate length and checked on fluoroscopic images with no screws penetrating the joint. The wound was then copiously irrigated. Again, stability was assessed under fluoroscopic guidance. The radial head was well reduced and radial capitellum joint was established. There was no posterior subluxation with stress test. The patient had full range of motion from 0 to 140 degrees on intraoperative exam. Work was then begun on closing the soft tissues. A 0 Vicryl was used to close the periosteum and soft tissue over the plate followed by 2-0 Vicryl for subcuticular layer, followed by damion for the skin. The patient tolerated the procedure well. Sterile dressing was applied. Arm was held in 30 degrees of flexion and supination and a long arm posterior plaster splint was placed. The patient returned to the recovery room in excellent condition. Postoperatively, the patient had good intact intrinsic function of the hand and good sensation of the fingers. During the surgery, I was assisted by Dr. Giuliano Alvarado, a board-certified orthopedic surgeon whose help was needed for proper patient positioning, intraoperative assistance, fracture fragment fixation, reduction, and provided intraoperative safety for the patient. Modifier 22 was used during the surgery due to obesity of the patient. Because of this risk factor, the length of the surgery was increased by 50%. Miguel Josue MD
[2018-07-10 06:38] LABS: HEMOGLOBIN 12.7 g/dL (12.0-18.0); MEAN CELL VOLUME 90.1 fl (80.0-94.0); MEAN CORPUSCULAR HEMOGLOBIN 31.2 pg (27.0-31.0); MEAN CORPUSCULAR HGB CONC 34.6 g/dL (33.0-37.0); RBC 4.07 Mil/uL (4.40-5.90); RED CELL DISTRIBUTION WIDTH 13.8 % (11.5-14.5); WHITE BLOOD COUNT 10.1 K/uL (4.8-10.8)
[2018-07-10 06:52] LABS: BLOOD UREA NITROGEN 12 mg/dl (9-20); CALCIUM 8.6 mg/dL (8.4-10.2); GFR NON-AFRICAN AMERICAN > 60
[2018-07-10] MEDS ORDERED: HYDROmorphone 0.5 mg/0.5 ml ISec IVP PRN (06:55)
[2018-07-10] MEDS: Oxycodone/Acetaminophen 5/325 mg Tab PO PRN (07:40)
[2018-07-10 08:14] VITALS: BP 144/81; PULSE 79; RESP 20; TEMP 98.1; O2SAT 96
[2018-07-10] MEDS: Pantoprazole 40 mg EC Tab PO SCH (08:36)
[2018-07-10] MEDS ORDERED: Enoxaparin 40 mg Syringe SC SCH (09:00)
--- NOTE | 2018-07-10 09:41 | RAD ---
PROCEDURE: HISTORY: As above COMPARISON: None TECHNIQUE: Total fluoroscopic time utilized during the procedure: 45.6 seconds ; 1.95 mGy FINDINGS: Submitted images from the current procedure: 12 Please refer to the physician's notes performing the procedure. IMPRESSION: Less than 1 hour fluoroscopic time utilized during performance of the procedure
--- NOTE | 2018-07-10 09:46 | RAD ---
Date of service: 07/09/2018 PROCEDURE: Radiographs of the right elbow. HISTORY: s/p R elbow ORIF COMPARISON: 07/07/2018 right elbow x-ray. Prior CT elbow report 07/07/2018 noted. TECHNIQUE: Two views obtained. These views are both fairly similar projection FINDINGS: BONES: A comminuted proximal ulnar fracture is transfixed by plates and screws grossly the prior displaced fracture fragments more closely appear anatomically aligned on the available images. No current dislocation suggested. Assessment of the radial head limited on this exam through casting material and overlapping of osseous structures. Skin sutures in place. JOINTS: Elbow joint arthrosis inferred. SOFT TISSUES: Diffuse swelling JOINT EFFUSION: Suggested OTHER FINDINGS: None. IMPRESSION: Open reduction internal fixation of a comminuted proximal ulnar fracture prior dislocation. The ulnar comminuted fracture fragments on available images appear anatomically aligned. The dislocation has been reduced. Limited assessment of the radius again noted-no prior report a radial head fractures on CT noted.
--- NOTE | 2018-07-10 10:12 | CP.PCM.PN ---
Subjective - Date & Time of Evaluation Date of Evaluation: 07/10/18 Time of Evaluation: 08:30 - Subjective Subjective: Patient seen and examined OOB with PT. Pain is well controlled. Moderate pain overnight. No other complaints. Denies CP/SOB/fever/dizziness. Objective - Vital Signs/Intake and Output Vital Signs (last 24 hours): Temp Pulse Resp BP Pulse Ox 98.1 F 79 20 144/81 96 07/10/18 08:13 07/10/18 08:13 07/10/18 08:13 07/10/18 08:13 07/10/18 08:13 Intake and Output: 07/10/18 07/10/18 06:59 18:59 Intake Total 790 Balance 790 - Medications Medications: Current Medications Acetaminophen (Tylenol 325mg Tab) 650 mg PO Q6 PRN PRN Reason: Fever >100.4 F Docusate Sodium (Colace) 100 mg PO BID [facility] Last Admin: 07/10/18 08:37 Dose: 100 mg Enoxaparin Sodium (Lovenox) 40 mg SC DAILY [facility]; Protocol Last Admin: 07/10/18 08:36 Dose: 40 mg Hydromorphone HCl (Dilaudid) 0.5 mg IVP Q6 PRN PRN Reason: Pain, severe (8-10) Lactated Ringer's (Lactated Ringer's) 1,000 mls @ 100 mls/hr IV .Q10H [facility] Last Admin: 07/10/18 04:00 Dose: 100 mls/hr Levothyroxine Sodium (Synthroid) 50 mcg PO DAILY@0630 [facility] Last Admin: 07/10/18 05:41 Dose: 50 mcg Oxycodone/Acetaminophen (Percocet 5/325 Mg Tab) 1 tab PO Q4 PRN PRN Reason: Pain, Mild (1-3) Stop: 07/11/18 09:28 Last Admin: 07/08/18 17:36 Dose: 1 tab Oxycodone/Acetaminophen (Percocet 5/325 Mg Tab) 2 tab PO Q4 PRN PRN Reason: Pain, moderate (4-7) Stop: 07/12/18 17:22 Last Admin: 07/10/18 07:40 Dose: 2 tab Pantoprazole Sodium (Protonix Ec Tab) 40 mg PO DAILY [facility] Last Admin: 07/10/18 08:36 Dose: 40 mg - Labs Labs: 07/10/18 06:05 07/10/18 06:05 PT 12.5 Seconds (9.8-13.1) 07/07/18 22:22 INR 1.1 07/07/18 22:22 APTT 31.3 Seconds (25.6-37.1) 07/07/18 22:22 - Extremities Exam Additional comments: RUE: long arm splint CDI mild swelling to all fingers sensation and motor intact MN/UN/RN < 2 sec cap refill all fingers Assessment and Plan (1) Fracture, Monteggia's, right arm, open Assessment & Plan: POD#1 s/p R olecranon ORIF -PT/OT NWB RUE -pain control -complete postop abx dosage -orthopedically stable for d/c to home -f/u in office within 7-10 days -d/w Dr. Josue who agrees with above Status: Acute
--- NOTE | 2018-07-10 10:14 | CP.PCM.DIS ---
<Malissa Pierre - Last Filed: 07/10/18 11:52> Provider - Provider Date of Admission: 07/08/18 00:06 Attending physician: Nathen Sy Consults: 07/08/18 08:00 Orthopedic Consult Routine Comment: Consulting Provider: Miguel Josue Consulting Physician: Miguel Josue Reason for Consult: open elbow fracture Time Spent in preparation of Discharge (in minutes): 30 Diagnosis - Discharge Diagnosis (1) Fracture of right elbow Status: Acute Comment: -XR and CT reviewed displaced fx of the radial and ulner neck. -Ortho consulted- s/p Right olecranon ORIF 07/09/18. -Pain management (2) Leukocytosis Status: Acute Comment: Resolved. acute phase reactant (3) Hypothyroidism Status: Acute Comment: -chronic. -c/w home meds (4) Hepatitis C Status: Acute Comment: -chronic. -controlled, s/p tx Hospital Course - Lab Results Lab Results: Most Recent Lab Values WBC 10.1 K/uL (4.8-10.8) 07/10/18 06:05 RBC 4.07 Mil/uL (4.40-5.90) L 07/10/18 06:05 Hgb 12.7 g/dL (12.0-18.0) 07/10/18 06:05 Hct 36.7 % (35.0-51.0) 07/10/18 06:05 MCV 90.1 fl (80.0-94.0) 07/10/18 06:05 MCH 31.2 pg (27.0-31.0) H 07/10/18 06:05 MCHC 34.6 g/dL (33.0-37.0) 07/10/18 06:05 RDW 13.8 % (11.5-14.5) 07/10/18 06:05 Plt Count 251 K/uL (130-400) 07/10/18 06:05 MPV 7.8 fl (7.2-11.7) 07/08/18 05:35 Neut % (Auto) 71.2 % (50.0-75.0) 07/08/18 05:35 Lymph % (Auto) 18.6 % (20.0-40.0) L 07/08/18 05:35 Pierce % (Auto) 9.5 % (0.0-10.0) 07/08/18 05:35 Eos % (Auto) 0.2 % (0.0-4.0) 07/08/18 05:35 Baso % (Auto) 0.5 % (0.0-2.0) 07/08/18 05:35 Neut # (Auto) 7.5 K/uL (1.8-7.0) H 07/08/18 05:35 Lymph # (Auto) 2.0 K/uL (1.0-4.3) 07/08/18 05:35 Pierce # (Auto) 1.0 K/uL (0.0-0.8) H 07/08/18 05:35 Eos # (Auto) 0.0 K/uL (0.0-0.7) 07/08/18 05:35 Baso # (Auto) 0.1 K/uL (0.0-0.2) 07/08/18 05:35 PT 12.5 Seconds (9.8-13.1) 07/07/18 22:22 INR 1.1 07/07/18 22:22 APTT 31.3 Seconds (25.6-37.1) 07/07/18 22:22 Sodium 134 mmol/l (132-148) 07/10/18 06:05 Potassium 4.1 MMOL/L (3.6-5.0) 07/10/18 06:05 Chloride 100 mmol/L (98-107) 07/10/18 06:05 Carbon Dioxide 22 mmol/L (22-30) 07/10/18 06:05 Anion Gap 16 (10-20) 07/10/18 06:05 BUN 12 mg/dl (9-20) 07/10/18 06:05 Creatinine 0.9 mg/dl (0.8-1.5) 07/10/18 06:05 Est GFR ( Amer) > 60 07/10/18 06:05 Est GFR (Non-Af Amer) > 60 07/10/18 06:05 Random Glucose 158 mg/dL (75-110) H 07/10/18 06:05 Calcium 8.6 mg/dL (8.4-10.2) 07/10/18 06:05 Total Bilirubin 0.6 mg/dl (0.2-1.3) 07/07/18 22:22 AST 41 U/L (17-59) 07/07/18 22:22 ALT 53 U/L (21-72) 07/07/18 22:22 Alkaline Phosphatase 48 U/L (38-126) 07/07/18 22:22 Total Protein 8.6 G/DL (6.3-8.2) H 07/07/18 22:22 Albumin 4.9 g/dL (3.5-5.0) 07/07/18 22:22 Globulin 3.6 gm/dL (2.2-3.9) 07/07/18 22:22 Albumin/Globulin Ratio 1.4 (1.0-2.1) 07/07/18 22:22 25-OH Vitamin D Total 28.6 NG/ML (30.0-100.0) L 07/08/18 11:00 TSH 3rd Generation 4.01 mIU/ML (0.46-4.68) 07/08/18 05:35 Urine Color Yellow (YELLOW) 07/10/18 00:40 Urine Clarity Clear (Clear) 07/10/18 00:40 Urine pH 6.0 (5.0-8.0) 07/10/18 00:40 Ur Specific [place]m Mott 1.017 (1.003-1.030) 07/10/18 00:40 Urine Protein 100 mg/dL (NEGATIVE) 07/10/18 00:40 Urine Glucose (UA) 150 mg/dL (NEGATIVE) 07/10/18 00:40 Urine Ketones Negative mg/dL (NEGATIVE) 07/10/18 00:40 Urine Blood Moderate (NEGATIVE) 07/10/18 00:40 Urine Nitrate Negative (NEGATIVE) 07/10/18 00:40 Urine Bilirubin Negative (NEGATIVE) 07/10/18 00:40 Urine Urobilinogen 0.2-1.0 mg/dL (0.2-1.0) 07/10/18 00:40 Ur Leukocyte Esterase Neg Jalil/uL (Negative) 07/10/18 00:40 Urine RBC (Auto) 15 /hpf (0-3) H 07/10/18 00:40 Urine Microscopic WBC < 1 /hpf (0-5) 07/10/18 00:40 Hyaline Casts 0-2 /hpf (0-2) 07/10/18 00:40 Blood Type O NEGATIVE 07/07/18 22:15 Blood Type Confirm O NEGATIVE 07/07/18 23:32 Antibody Screen Negative 07/07/18 22:15 BBK History Checked No verified bt 07/07/18 22:15 - Hospital Course Hospital Course: 62 yo Male with history of hiatal hernia, Hep c, hypothyroidism was admitted for R elbow fracture is now s/p R Olecranon ORIF 07/09/[address] Josue. During his stay, patient was hemodynamically stable, afebrile and pain was well controlled with medications. Patient to follow up with Dr. Hoskins in 7 days. PT saw and evaluated patient and he was cleared for discharge with a physical therapy prescription. Discharge Exam - Head Exam Head Exam: ATRAUMATIC - ENT Exam ENT Exam: Mucous Membranes Moist - Respiratory Exam Respiratory Exam: Clear to PA & Lateral, NORMAL BREATHING PATTERN, UNREMARKABLE. absent: Accessory Muscle Use, Chest Wall Tenderness, Prolonged Expiratory Phase, Rales, Wheezes, Respiratory Distress - Cardiovascular Exam Cardiovascular Exam: REGULAR RHYTHM, +S1, +S2 - GI/Abdominal Exam GI & Abdominal Exam: Normal Bowel Sounds, Soft, Unremarkable. absent: Diminished Bowel Sounds, Distended, Firm, Mass, Rebound, Rigid, Tenderness - Extremities Exam Extremities exam: normal capillary refill, normal inspection Additional comments: Right cast in place. Sensation intact in fingers. - Neurological Exam Neurological exam: Alert, Oriented x3 - Psychiatric Exam Psychiatric exam: Normal Affect, Normal Mood - Skin Skin Exam: Dry, Intact, Normal Color, Warm Discharge Plan - Discharge Medications Prescriptions: RX: oxyCODONE/Acetaminophen [Percocet 5/325 mg Tab] 1 tab PO Q4 PRN #30 tab PRN Reason: Pain, Moderate (4-7) - Follow Up Plan Condition: FAIR Disposition: HOME/ ROUTINE Patient education suggested?: Yes Instructions: Elbow Fracture (DC), Open Reduction and Internal Fixation Surgery (DC), How to Use a Shoulder Sling Additional Instructions: follow up with primary MD 1 week non weight bearing right arm Referrals: Miguel Josue MD [Medical Doctor] - <Mariah Hudson - Last Filed: 07/10/18 13:15> Provider - Provider Date of Admission: 07/08/18 00:06 Attending physician: Nathen Sy Consults: 07/08/18 08:00 Orthopedic Consult Routine Comment: Consulting Provider: Miguel Josue Consulting Physician: Miguel Josue Reason for Consult: open elbow fracture Hospital Course - Lab Results Lab Results: Most Recent Lab Values WBC 10.1 K/uL (4.8-10.8) 07/10/18 06:05 RBC 4.07 Mil/uL (4.40-5.90) L 07/10/18 06:05 Hgb 12.7 g/dL (12.0-18.0) 07/10/18 06:05 Hct 36.7 % (35.0-51.0) 07/10/18 06:05 MCV 90.1 fl (80.0-94.0) 07/10/18 06:05 MCH 31.2 pg (27.0-31.0) H 07/10/18 06:05 MCHC 34.6 g/dL (33.0-37.0) 07/10/18 06:05 RDW 13.8 % (11.5-14.5) 07/10/18 06:05 Plt Count 251 K/uL (130-400) 07/10/18 06:05 MPV 7.8 fl (7.2-11.7) 07/08/18 05:35 Neut % (Auto) 71.2 % (50.0-75.0) 07/08/18 05:35 Lymph % (Auto) 18.6 % (20.0-40.0) L 07/08/18 05:35 Pierce % (Auto) 9.5 % (0.0-10.0) 07/08/18 05:35 Eos % (Auto) 0.2 % (0.0-4.0) 07/08/18 05:35 Baso % (Auto) 0.5 % (0.0-2.0) 07/08/18 05:35 Neut # (Auto) 7.5 K/uL (1.8-7.0) H 07/08/18 05:35 Lymph # (Auto) 2.0 K/uL (1.0-4.3) 07/08/18 05:35 Pierce # (Auto) 1.0 K/uL (0.0-0.8) H 07/08/18 05:35 Eos # (Auto) 0.0 K/uL (0.0-0.7) 07/08/18 05:35 Baso # (Auto) 0.1 K/uL (0.0-0.2) 07/08/18 05:35 PT 12.5 Seconds (9.8-13.1) 07/07/18 22:22 INR 1.1 07/07/18 22:22 APTT 31.3 Seconds (25.6-37.1) 07/07/18 22:22 Sodium 134 mmol/l (132-148) 07/10/18 06:05 Potassium 4.1 MMOL/L (3.6-5.0) 07/10/18 06:05 Chloride 100 mmol/L (98-107) 07/10/18 06:05 Carbon Dioxide 22 mmol/L (22-30) 07/10/18 06:05 Anion Gap 16 (10-20) 07/10/18 06:05 BUN 12 mg/dl (9-20) 07/10/18 06:05 Creatinine 0.9 mg/dl (0.8-1.5) 07/10/18 06:05 Est GFR ( Amer) > 60 07/10/18 06:05 Est GFR (Non-Af Amer) > 60 07/10/18 06:05 Random Glucose 158 mg/dL (75-110) H 07/10/18 06:05 Calcium 8.6 mg/dL (8.4-10.2) 07/10/18 06:05 Total Bilirubin 0.6 mg/dl (0.2-1.3) 07/07/18 22:22 AST 41 U/L (17-59) 07/07/18 22:22 ALT 53 U/L (21-72) 07/07/18 22:22 Alkaline Phosphatase 48 U/L (38-126) 07/07/18 22:22 Total Protein 8.6 G/DL (6.3-8.2) H 07/07/18 22:22 Albumin 4.9 g/dL (3.5-5.0) 07/07/18 22:22 Globulin 3.6 gm/dL (2.2-3.9) 07/07/18 22:22 Albumin/Globulin Ratio 1.4 (1.0-2.1) 07/07/18 22:22 25-OH Vitamin D Total 28.6 NG/ML (30.0-100.0) L 07/08/18 11:00 TSH 3rd Generation 4.01 mIU/ML (0.46-4.68) 07/08/18 05:35 Urine Color Yellow (YELLOW) 07/10/18 00:40 Urine Clarity Clear (Clear) 07/10/18 00:40 Urine pH 6.0 (5.0-8.0) 07/10/18 00:40 Ur Specific [place]m Mott 1.017 (1.003-1.030) 07/10/18 00:40 Urine Protein 100 mg/dL (NEGATIVE) 07/10/18 00:40 Urine Glucose (UA) 150 mg/dL (NEGATIVE) 07/10/18 00:40 Urine Ketones Negative mg/dL (NEGATIVE) 07/10/18 00:40 Urine Blood Moderate (NEGATIVE) 07/10/18 00:40 Urine Nitrate Negative (NEGATIVE) 07/10/18 00:40 Urine Bilirubin Negative (NEGATIVE) 07/10/18 00:40 Urine Urobilinogen 0.2-1.0 mg/dL (0.2-1.0) 07/10/18 00:40 Ur Leukocyte Esterase Neg Jalil/uL (Negative) 07/10/18 00:40 Urine RBC (Auto) 15 /hpf (0-3) H 07/10/18 00:40 Urine Microscopic WBC < 1 /hpf (0-5) 07/10/18 00:40 Hyaline Casts 0-2 /hpf (0-2) 07/10/18 00:40 Blood Type O NEGATIVE 07/07/18 22:15 Blood Type Confirm O NEGATIVE 07/07/18 23:32 Antibody Screen Negative 07/07/18 22:15 BBK History Checked No verified bt 07/07/18 22:15 Attending/Attestation - Attestation I have personally seen and examined this patient.: Yes I have fully participated in the care of the patient.: Yes I have reviewed all pertinent clinical information, including history, physical exam and plan: Yes
== END 2018-07-10 12:05 | disposition home or self-care (01) ==
LOC: H.ER 19:50 → INTOOBSV 07-08 00:06 → H.ERHOLD 07-08 00:06 → H.MEDSURG1 07-08 02:15
PROVIDERS: ADMIT Internal Medicine; ATTEND Internal Medicine
DX: S52.271B Monteggia's fracture of right ulna, initial encounter for open fracture type I or II (principal); S52.121A Displaced fracture of head of right radius, initial encounter for closed fracture; M79.2 Neuralgia and neuritis, unspecified; D72.829 Elevated white blood cell count, unspecified; W17.89XA Other fall from one level to another, initial encounter; E03.9 Hypothyroidism, unspecified; B19.20 Unspecified viral hepatitis C without hepatic coma; Z87.891 Personal history of nicotine dependence
CPT/HCPCS: 11012; 24635; 24665; 36415; 64718; 71045; 73080; 73200; 76000; 80048; 80053; 81003; 82306; 84443; 85025; 85027; 85610; 85730; 86850; 86900; 93005; 96361; 96365; 96372; 96375; 96376; 97161; 97165; 97530; 99284; G0378; G8978; G8979; G8987; G8988; J0330; J0690; J1170; J1650; J2250; J2270; J2405; J2704; J2710; J2765; J3010; J7030; J7042; J7120